=== PATIENT | male | born 1960 | race Caucasian/White ===

== ENCOUNTER → 2017-03-15 | Day surgery (SDC) | payer MEDICAID ==
[~2017-03-15] VITALS: Ht 167.6 cm; Wt 94.8 kg
[~2017-03-15] MED LIST: ACETAMINOPHEN 325MG TABLET PO PRN; ASPI-1035 PO; FENTANYL CITRATE/PF 50MCG/ML 2ML VIAL ONE; GLIP5TAB12 PO; HEPARIN 1,000 UNITS in 0.9% NACL (2 UNITS/ML) 500ML PREMIX IV ONE; HEPARIN SODIUM 1,000 UNIT/1ML VIAL IV ONE; HYDROMORPHONE HCL/PF 2MG/ML CPJ ONE; IOHEXOL-300 100 ML BOTTLE ONE; LIDOCAINE HCL 1% 20ML VIAL (Pyxis) INJ ONE; LISI10TA5 PO; METO25TA6 PO; MIDAZOLAM HCL 2 MG/2 ML VIAL ONE; MORPHINE SULFATE 2 MG/ML CPJ (NOT FOR IM USE) IV PRN; NICARDIPINE 100MCG/ML 10ML VIAL (CATH LAB) IV ONE; NITROGLYCERIN 50MCG/ML 10ML VIAL (CATH LAB) IV ONE; ONDANSETRON HCL 4MG/2ML VIAL IV PRN
[2017-03-15 09:52] LABS: HEMATOCRIT 46.7 % (42.0-52.0); HEMOGLOBIN 16.3 g/dL (14.0-18.0); MEAN CORPUSCULAR HGB CONC 34.8 g/dL (31.0-37.0); PLATELET 241 x1000/uL (130-400); RED BLOOD CELL COUNT 5.25 mill/uL (4.7-6.1); RED CELL DISTRIBUTION WIDTH 13.8 % (11.6-14.6); WHITE BLOOD COUNT 8.9 x1000/uL (4.5-11.0)
[2017-03-15 09:58] LABS: PARTIAL THROMBOPLASTIN TIME 25.7 sec (24.0-34.0); PROTHROMBIN TIME 10.5 sec
[2017-03-15 10:04] LABS: CHLORIDE 103 mEq/L (98-107); INDEX HEMOLYSI 1 (1-3); INDEX ICTERIC 1 (1-4); INDEX LIPEMIC 1 (1-3)
[2017-03-15 10:11] LABS: ANION GAP 12; CARBON DIOXIDE 30 mEq/L (21-32); UREA NITROGEN BLOOD 15 mg/dL (7-21); eGFR > 60 mL/min (>60)
== END | disposition home or self-care (01) ==
LOC: CCL 08:38
PROVIDERS: ATTEND Internal Medicine Cardiovascular Disease
DX: R94.39 Abnormal result of other cardiovascular function study (principal); I10 Essential (primary) hypertension; E11.9 Type 2 diabetes mellitus without complications; M19.90 Unspecified osteoarthritis, unspecified site
CPT/HCPCS: 36415; 80048; 85027; 85610; 85730; 93458; C1760; C1769; C1887; C1893; J1170; J1644; J2250; J3010; J3490; Q9967